=== PATIENT | female | born 1995 | race Hispanic/Latino ===

== ENCOUNTER 2021-02-26 22:54 | Emergency (ER) | payer SELFPAY ==
[~2021-02-26] VITALS: Ht 152.4 cm; Wt 62.6 kg
[2021-02-26] MEDS ORDERED: SODIUM CHLORIDE 0.9% 1000ML 1,000 ML IV ONE (23:15)
[2021-02-26 23:48] LABS: BASOPHILS # (AUTO) 0.1 (0.0-0.1); BASOPHILS % 0.8 % (0.0-1.0); EOSINOPHILS # (AUTO) 0.2 (0.0-0.4); HEMOGLOBIN 11.7 g/dL (12.0-16.0); LYMPHOCYTES # (AUTO) 3.5 (1.0-3.2); MEAN CORPUSCULAR HEMOGLOBIN 24.3 pg (28-32); MEAN CORPUSCULAR VOLUME 80.9 fL (81-99); MONOCYTES # (AUTO) 0.7 (0.2-0.8); MONOCYTES % 9.4 % (4.4-11.3); NEUTROPHILS # (AUTO) 3.1 (2.1-6.9); NEUTROPHILS % 41.7 % (38.7-80.0); PLATELET COUNT 323 x10e3/uL (140-360); RED BLOOD COUNT 4.82 x10e6/uL (3.6-5.1); RED CELL DISTRIBUTION WIDTH 18.1 % (11.7-14.4)
[2021-02-27 00:02] LABS: CLARITY,URINE CLOUDY (CLEAR); COLOR,URINE YELLOW (YELLOW); LEUKOCYTE ESTERASE ,URINE NEGATIVE (NEGATIVE); NITRITE,URINE NEGATIVE (NEGATIVE); PROTEIN,URINE DIPSTICK NEGATIVE (NEGATIVE)
[2021-02-27 00:03] LABS: AMPHETAMINES SCREEN,URINE NEGATIVE (NEGATIVE); BENZODIAZEPINES SCREEN,URINE NEGATIVE (NEGATIVE); KETONES,URINE NEGATIVE (NEGATIVE); PHENCYCLIDINE SCREEN,URINE NEGATIVE (NEGATIVE); URINE UROBILINOGEN 1 mg/dL (0.2 - 1)
[2021-02-27 00:08] LABS: ANION GAP 12.7 mmol/L (8-16); CALCIUM 8.6 mg/dL (8.4-10.2); CREATININE, SERUM 0.69 mg/dL (0.57-1.11); POTASSIUM 3.7 mmol/L (3.5-5.1)
[2021-02-27 00:10] LABS: BACTERIA,URINE MANY /HPF; EPITHELIAL CELLS,URINE MODERATE /LPF; WBC,URINE (MAN) 21-50 /HPF (0-5)
[2021-02-27 00:15] LABS: CREATINE KINASE MB 0.8 ng/mL (0-5.0)
== END 2021-02-27 01:30 | disposition home or self-care (01) ==
LOC: ER 23:01
DX: R00.2 Palpitations (principal); F10.10 Alcohol abuse, uncomplicated; N39.0 Urinary tract infection, site not specified; E03.9 Hypothyroidism, unspecified; F41.9 Anxiety disorder, unspecified
CPT/HCPCS: 36415; 80048; 80307; 81001; 81025; 82550; 82553; 84484; 85025; 93005; 99284; J7030

== ENCOUNTER 2021-11-01 14:32 | Emergency (ER) | payer OTHER ==
[~2021-11-01] VITALS: Ht 152.4 cm; Wt 62.6 kg
[2021-11-01] MEDS ORDERED: CYPROHEPTADINE HCL 4 MG TAB PO ONE (16:00)
[2021-11-01] MEDS ORDERED: LORAZEPAM 1 MG TAB PO ONE (16:00)
[2021-11-01] MEDS ORDERED: CLONAZEPAM 1 MG TAB PO ONE (16:30)
[2021-11-01] MEDS ORDERED: CLONAZEPAM 1 MG TAB ONE (16:34)
[2021-11-01] MEDS ORDERED: KLONOPIN0.5 MG PO (16:38)
== END 2021-11-01 16:58 | disposition home or self-care (01) ==
LOC: ER 15:12
DX: R25.1 Tremor, unspecified (principal); T43.225A Adverse effect of selective serotonin reuptake inhibitors, initial encounter; Y92.89 Other specified places as the place of occurrence of the external cause; F41.9 Anxiety disorder, unspecified
CPT/HCPCS: 99282